=== PATIENT | female | born 1940 | race Caucasian/White ===

== ENCOUNTER 2017-03-03 16:20 | Emergency (ER) | payer MEDICARE, BC ==
[~2017-03-03] VITALS: Ht 165.1 cm; Wt 65.9 kg
[~2017-03-03 16:20] MED LIST: ACIDOPHILU4 PO; ACIPHEX20 MG PO; AMLODIPINE5 MG PO; ASPIRIN EC81 MG PO; BACTRIM DS1 TAB PO; BL ADULT ASA81 MG OR; BLACK COHOSH160 MG PO; BLACK COHOSH40 MG PO; BONIVA150 MG PO; CALCIUM MAGNESIUM & PO; CALCIUM/MAG PO; CELEBREX100 MG PO; CELEBREX200 MG OR; CENTRUM PO; CIPROFLOXACN500 MG PO; COD LIVER O1 PO; COD LIVER OIL; FLORASTOR250 M1 PO; FLUOXETINE20 M2 OR; FLUOXETINE20 MG PO; GLUCOSAMINE CHO1 CA3; LEVAQUIN250 MG OR; LEVAQUIN500 MG PO; LORTAB5 PO; LOSARTAN POT100 MG PO; LOSARTAN POTASS50 MG PO; NORCO1 TA1 PO; OXYCODONE HCL5 MG PO; OXYCODONE5 M1 PO; OXYCONTIN10 MG PO; PEPCID20 MG PO; PEPCID40 MG PO; PHENERGAN25 MG/TAB PO; PHILLIPS COLON HEALT PO; PLAVIX75 MG PO; PROMETHAZINE HC25 MG RE; PYRIDIUM200 MG OR; RESTORIL15 MG PO; SIMVASTATIN80 MG PO; VITAMIN B 12100 MCG PO; VOLTAREN 1% TOP; XALATAN 0.005%2.5 ML OU; [UNRECOGNIZED DRUG - OTHER] DT; [UNRECOGNIZED DRUG - OTHER] OP; [UNRECOGNIZED DRUG - OTHER] OU; [UNRECOGNIZED DRUG - OTHER] PO
[2017-03-03] MEDS ORDERED: CIPROFLOXACN500 MG PO ×2 (17:23→17:34)
[2017-03-03 17:34] VITALS: BP 149/84
== END 2017-03-03 17:34 | disposition home or self-care (01) ==
LOC: ED 16:20
DX: S40.811A Abrasion of right upper arm, initial encounter (principal); S80.212A Abrasion, left knee, initial encounter; S80.211A Abrasion, right knee, initial encounter; S41.111A Laceration without foreign body of right upper arm, initial encounter; W01.0XXA Fall on same level from slipping, tripping and stumbling without subsequent striking against object, initial encounter; Y93.01 Activity, walking, marching and hiking; Y92.007 Garden or yard of unspecified non-institutional (private) residence as the place of occurrence of the external cause

== ENCOUNTER 2017-03-05 19:11 | Emergency (ER) | payer MEDICARE, BC ==
[~2017-03-05] VITALS: Ht 165.1 cm; Wt 63.4 kg
[2017-03-05] MEDS ORDERED: BACTRIM DS1 TAB PO (19:52)
[2017-03-05 20:08] VITALS: BP 127/72
== END 2017-03-05 20:10 | disposition home or self-care (01) ==
LOC: ED 19:11
DX: S41.111D Laceration without foreign body of right upper arm, subsequent encounter (principal)

== ENCOUNTER 2017-03-07 12:19 | Emergency (ER) | payer MEDICARE, BC ==
[~2017-03-07] VITALS: Ht 165.1 cm; Wt 66.0 kg
[2017-03-07 13:43] VITALS: BP 110/71
== END 2017-03-07 13:43 | disposition home or self-care (01) ==
LOC: ED 12:19
PROC: 0H9EXZZ Drainage of Left Lower Arm Skin, External Approach (ICD-10-PCS; principal; 2017-03-07)
DX: S41.111D Laceration without foreign body of right upper arm, subsequent encounter (principal)

== ENCOUNTER 2018-09-16 09:19 | Inpatient (IN) | payer MEDICARE ==
[~2018-09-16] VITALS: Ht 165.1 cm; Wt 62.0 kg
[~2018-09-16 09:19] MED LIST changes: +FAMOTIDINE20 M1 PO; +PERCOCET 10/31 COMBO PO
[2018-09-16 09:48] LABS: IMMATURE GRANULOCYTES 0.6 % (0.0-5.0); MEAN CELL VOLUME 85.3 fL CALC (80.0-100.0); MEAN CORPUSCULAR HGB 29.4 pG CALC (26.0-32.0); MEAN CORPUSCULAR HGB CONC 34.5 g/L CALC (32.0-36.0); NEUT# 18.39 thou/uL (2.00-7.15); RED BLOOD COUNT 6.53 mill/uL (4.20-5.60); RED CELL DISTRI WIDTH 13.8 % (11.5-15.5)
[2018-09-16 09:52] LABS: HEMATOCRIT 55.7 % (37.0-47.0); HEMOGLOBIN 19.2 g/dl (12.0-16.0)
[2018-09-16 09:59] LABS: ALKALINE PHOSPHATASE 121 u/l (38-126); ANION GAP 21 (6-22 (CALC)); BILIRUBIN, TOTAL 1.5 mg/dL (0.0-1.4); BUN 19 mg/dL (8-23); BUN/CREATININE RATIO 35 (12-20 (CALC)); CARBON DIOXIDE 25 mmol/l (22-30); CHLORIDE 94 mmol/l (95-108); CREATININE 0.5 mg/dL (0.5-1.0); GFR > 60 ML/MIN (>=60 (CALC)); GFR FOR AFR.AMER. > 60 ML/MIN (>=60 (CALC)); LIPASE 99 u/l (23-300); POTASSIUM 3.8 mmol/l (3.5-5.1); SGOT/AST 42 u/l (9-36); SODIUM 136 mmol/l (137-146)
[2018-09-16 10:00] LABS: TOTAL PROTEIN 8.7 g/dL (6.3-8.2)
[2018-09-16 12:01] LABS: URINE BILIRUBIN - DIPSTICK NEGATIVE (NEGATIVE); URINE BLOOD DIPSTICK TRACE-INTACT (NEGATIVE); URINE COLOR YELLOW; URINE GLUCOSE - DIPSTICK NEGATIVE (NEGATIVE); URINE KETONE 15 mg/dL (NEGATIVE); URINE LEUK ESTERASE NEGATIVE (NEGATIVE); URINE NITRITE - DIPSTICK NEGATIVE (Negative); URINE PROTEIN - DIPSTICK 30 mg/dL (NEG-TRACE); URINE UROBILINOGEN - DIPSTICK 0.2 E.U./dL (0.2)
[2018-09-16 12:10] LABS: URINE RBC 0-2 RBC/hpf (0-5); URINE WBC 0-2 WBC/hpf (0-5)
[2018-09-16 12:11] LABS: URINE SQUAMOUS EPITHELIAL CELL FEW EPI/hpf (0-FEW)
[2018-09-16 13:41] LABS: MAGNESIUM 2.1 mg/dL (1.6-2.3)
[2018-09-16 15:20] VITALS: BP 170/83
[2018-09-16 15:54] LABS: HEMATOCRIT 51.4 % (37.0-47.0); HEMOGLOBIN 17.6 g/dl (12.0-16.0); IMMATURE GRANULOCYTES 0.6 % (0.0-5.0); MEAN CELL VOLUME 86.5 fL CALC (80.0-100.0); MEAN CORPUSCULAR HGB 29.6 pG CALC (26.0-32.0); MEAN CORPUSCULAR HGB CONC 34.2 g/L CALC (32.0-36.0); NEUT# 17.82 thou/uL (2.00-7.15); RED BLOOD COUNT 5.94 mill/uL (4.20-5.60); RED CELL DISTRI WIDTH 13.8 % (11.5-15.5)
[2018-09-16 16:56] LABS: ANION GAP 17 (6-22 (CALC)); BUN 16 mg/dL (8-23); BUN/CREATININE RATIO 33 (12-20 (CALC)); CARBON DIOXIDE 24 mmol/l (22-30); CHLORIDE 101 mmol/l (95-108); CREATININE 0.5 mg/dL (0.5-1.0); GFR > 60 ML/MIN (>=60 (CALC)); GFR FOR AFR.AMER. > 60 ML/MIN (>=60 (CALC)); POTASSIUM 3.9 mmol/l (3.5-5.1); SODIUM 137 mmol/l (137-146)
[2018-09-16 19:20] VITALS: BP 179/90
[2018-09-16 22:00] VITALS: BP 100/64
[2018-09-16 22:05] VITALS: BP 118/66
[2018-09-16 22:10] VITALS: BP 122/64
[2018-09-17] VITALS (8 sets, daily range): BP systolic 98–159; BP diastolic 45–99
[2018-09-17 05:35] LABS: ANION GAP 14 (6-22 (CALC)); BUN 15 mg/dL (8-23); BUN/CREATININE RATIO 27 (12-20 (CALC)); CARBON DIOXIDE 24 mmol/l (22-30); CHLORIDE 105 mmol/l (95-108); CREATININE 0.6 mg/dL (0.5-1.0); GFR > 60 ML/MIN (>=60 (CALC)); GFR FOR AFR.AMER. > 60 ML/MIN (>=60 (CALC)); POTASSIUM 3.7 mmol/l (3.5-5.1); SODIUM 139 mmol/l (137-146)
[2018-09-17 05:51] LABS: HEMOGLOBIN 17.1 g/dl (12.0-16.0); IMMATURE GRANULOCYTES 1.1 % (0.0-5.0); MEAN CELL VOLUME 87.4 fL CALC (80.0-100.0); MEAN CORPUSCULAR HGB 29.9 pG CALC (26.0-32.0); MEAN CORPUSCULAR HGB CONC 34.2 g/L CALC (32.0-36.0); NEUT# 15.47 thou/uL (2.00-7.15); RED BLOOD COUNT 5.72 mill/uL (4.20-5.60); RED CELL DISTRI WIDTH 14.2 % (11.5-15.5)
[2018-09-18] VITALS (8 sets, daily range): BP systolic 103–146; BP diastolic 60–81
[2018-09-18 05:35] LABS: HEMATOCRIT 46.5 % (37.0-47.0); HEMOGLOBIN 15.7 g/dl (12.0-16.0); IMMATURE GRANULOCYTES 0.7 % (0.0-5.0); MEAN CELL VOLUME 88.7 fL CALC (80.0-100.0); MEAN CORPUSCULAR HGB CONC 33.8 g/L CALC (32.0-36.0); NEUT# 11.99 thou/uL (2.00-7.15); RED BLOOD COUNT 5.24 mill/uL (4.20-5.60); RED CELL DISTRI WIDTH 14.5 % (11.5-15.5)
[2018-09-18 05:56] LABS: ALKALINE PHOSPHATASE 73 u/l (38-126); AMYLASE 85 u/l (30-110); ANION GAP 13 (6-22 (CALC)); BUN 17 mg/dL (8-23); BUN/CREATININE RATIO 26 (12-20 (CALC)); CARBON DIOXIDE 25 mmol/l (22-30); CHLORIDE 103 mmol/l (95-108); CREATININE 0.7 mg/dL (0.5-1.0); GFR > 60 ML/MIN (>=60 (CALC)); GFR FOR AFR.AMER. > 60 ML/MIN (>=60 (CALC)); LIPASE 476 u/l (23-300); POTASSIUM 3.3 mmol/l (3.5-5.1); SGOT/AST 26 u/l (9-36); SODIUM 139 mmol/l (137-146)
[2018-09-18 05:57] LABS: ALBUMIN 3.3 g/dL (3.2-5.0); TOTAL PROTEIN 5.7 g/dL (6.3-8.2)
[2018-09-19] VITALS (8 sets, daily range): BP systolic 102–152; BP diastolic 67–89
[2018-09-19 05:45] LABS: HEMATOCRIT 43.5 % (37.0-47.0); HEMOGLOBIN 14.7 g/dl (12.0-16.0); IMMATURE GRANULOCYTES 0.6 % (0.0-5.0); MEAN CELL VOLUME 87.9 fL CALC (80.0-100.0); MEAN CORPUSCULAR HGB 29.7 pG CALC (26.0-32.0); MEAN CORPUSCULAR HGB CONC 33.8 g/L CALC (32.0-36.0); NEUT# 9.74 thou/uL (2.00-7.15); RED BLOOD COUNT 4.95 mill/uL (4.20-5.60); RED CELL DISTRI WIDTH 14.2 % (11.5-15.5)
[2018-09-19 05:47] LABS: ALBUMIN 3.1 g/dL (3.2-5.0); ALKALINE PHOSPHATASE 64 u/l (38-126); AMYLASE 105 u/l (30-110); ANION GAP 13 (6-22 (CALC)); BILIRUBIN, TOTAL 0.9 mg/dL (0.0-1.4); BUN 13 mg/dL (8-23); BUN/CREATININE RATIO 22 (12-20 (CALC)); CARBON DIOXIDE 27 mmol/l (22-30); CHLORIDE 103 mmol/l (95-108); CREATININE 0.6 mg/dL (0.5-1.0); GFR > 60 ML/MIN (>=60 (CALC)); GFR FOR AFR.AMER. > 60 ML/MIN (>=60 (CALC)); LIPASE 607 u/l (23-300); POTASSIUM 3.1 mmol/l (3.5-5.1); SGOT/AST 23 u/l (9-36); SODIUM 140 mmol/l (137-146); TOTAL PROTEIN 5.5 g/dL (6.3-8.2)
[2018-09-19 17:56] LABS: C. DIFFICILE TOXIN A&B NEGATIVE (NEGATIVE)
[2018-09-20] VITALS (10 sets, daily range): BP systolic 112–156; BP diastolic 65–94
[2018-09-20 10:45] LABS: HEMATOCRIT 42.6 % (37.0-47.0); HEMOGLOBIN 14.6 g/dl (12.0-16.0); IMMATURE GRANULOCYTES 0.3 % (0.0-5.0); MEAN CELL VOLUME 88.2 fL CALC (80.0-100.0); MEAN CORPUSCULAR HGB 30.2 pG CALC (26.0-32.0); MEAN CORPUSCULAR HGB CONC 34.3 g/L CALC (32.0-36.0); NEUT# 6.94 thou/uL (2.00-7.15); RED BLOOD COUNT 4.83 mill/uL (4.20-5.60); RED CELL DISTRI WIDTH 14.1 % (11.5-15.5)
[2018-09-20 11:08] LABS: ALBUMIN 3.3 g/dL (3.2-5.0); ALKALINE PHOSPHATASE 54 u/l (38-126); ANION GAP 14 (6-22 (CALC)); BILIRUBIN, TOTAL 0.9 mg/dL (0.0-1.4); BUN 10 mg/dL (8-23); BUN/CREATININE RATIO 19 (12-20 (CALC)); CARBON DIOXIDE 24 mmol/l (22-30); CHLORIDE 105 mmol/l (95-108); CREATININE 0.5 mg/dL (0.5-1.0); GFR > 60 ML/MIN (>=60 (CALC)); GFR FOR AFR.AMER. > 60 ML/MIN (>=60 (CALC)); LIPASE 594 u/l (23-300); POTASSIUM 3.3 mmol/l (3.5-5.1); SGOT/AST 23 u/l (9-36); SODIUM 140 mmol/l (137-146); TOTAL PROTEIN 5.7 g/dL (6.3-8.2)
[2018-09-21] VITALS (10 sets, daily range): BP systolic 94–140; BP diastolic 43–84
[2018-09-21 05:10] LABS: HEMATOCRIT 41.7 % (37.0-47.0); HEMOGLOBIN 14.1 g/dl (12.0-16.0); IMMATURE GRANULOCYTES 0.6 % (0.0-5.0); MEAN CELL VOLUME 88.2 fL CALC (80.0-100.0); MEAN CORPUSCULAR HGB 29.8 pG CALC (26.0-32.0); MEAN CORPUSCULAR HGB CONC 33.8 g/L CALC (32.0-36.0); NEUT# 6.41 thou/uL (2.00-7.15); RED BLOOD COUNT 4.73 mill/uL (4.20-5.60); RED CELL DISTRI WIDTH 13.9 % (11.5-15.5)
[2018-09-21 08:21] LABS: ALBUMIN 3.1 g/dL (3.2-5.0); ALKALINE PHOSPHATASE 56 u/l (38-126); AMYLASE 100 u/l (30-110); ANION GAP 18 (6-22 (CALC)); BILIRUBIN, TOTAL 0.8 mg/dL (0.0-1.4); BUN 12 mg/dL (8-23); BUN/CREATININE RATIO 24 (12-20 (CALC)); CARBON DIOXIDE 22 mmol/l (22-30); CHLORIDE 105 mmol/l (95-108); CREATININE 0.5 mg/dL (0.5-1.0); GFR > 60 ML/MIN (>=60 (CALC)); GFR FOR AFR.AMER. > 60 ML/MIN (>=60 (CALC)); LIPASE 509 u/l (23-300); MAGNESIUM 1.9 mg/dL (1.6-2.3); POTASSIUM 3.3 mmol/l (3.5-5.1); SGOT/AST 26 u/l (9-36); SODIUM 142 mmol/l (137-146); TOTAL PROTEIN 5.5 g/dL (6.3-8.2)
[2018-09-22] VITALS (7 sets, daily range): BP systolic 122–158; BP diastolic 71–79
[2018-09-22 02:36] LABS: C. DIFFICILE TOXIN A&B NEGATIVE (NEGATIVE)
[2018-09-22 05:31] LABS: HEMATOCRIT 40.9 % (37.0-47.0); HEMOGLOBIN 14.1 g/dl (12.0-16.0); IMMATURE GRANULOCYTES 0.7 % (0.0-5.0); MEAN CORPUSCULAR HGB CONC 34.5 g/L CALC (32.0-36.0); NEUT# 6.15 thou/uL (2.00-7.15); RED BLOOD COUNT 4.7 mill/uL (4.20-5.60)
[2018-09-22 05:54] LABS: ALBUMIN 3.1 g/dL (3.2-5.0); ALKALINE PHOSPHATASE 52 u/l (38-126); AMYLASE 91 u/l (30-110); BILIRUBIN, TOTAL 0.6 mg/dL (0.0-1.4); BUN 9 mg/dL (8-23); BUN/CREATININE RATIO 20 (12-20 (CALC)); CARBON DIOXIDE 25 mmol/l (22-30); CHLORIDE 106 mmol/l (95-108); CREATININE 0.5 mg/dL (0.5-1.0); GFR > 60 ML/MIN (>=60 (CALC)); GFR FOR AFR.AMER. > 60 ML/MIN (>=60 (CALC)); SGOT/AST 23 u/l (9-36); TOTAL PROTEIN 5.5 g/dL (6.3-8.2)
[2018-09-22 05:57] LABS: ANION GAP 4 (6-22 (CALC)); SODIUM 131 mmol/l (137-146)
[2018-09-22 06:23] LABS: MAGNESIUM 1.8 mg/dL (1.6-2.3)
[2018-09-23] VITALS (8 sets, daily range): BP systolic 110–156; BP diastolic 66–93
[2018-09-23 09:44] LABS: IMMATURE GRANULOCYTES 0.6 % (0.0-5.0); MEAN CELL VOLUME 86.4 fL CALC (80.0-100.0); MEAN CORPUSCULAR HGB 29.7 pG CALC (26.0-32.0); MEAN CORPUSCULAR HGB CONC 34.3 g/L CALC (32.0-36.0); NEUT# 6.54 thou/uL (2.00-7.15); RED BLOOD COUNT 5.53 mill/uL (4.20-5.60); RED CELL DISTRI WIDTH 14.4 % (11.5-15.5)
[2018-09-23 09:48] LABS: ANION GAP 15 (6-22 (CALC)); BUN 4 mg/dL (8-23); BUN/CREATININE RATIO 8 (12-20 (CALC)); CARBON DIOXIDE 23 mmol/l (22-30); CHLORIDE 107 mmol/l (95-108); CREATININE 0.5 mg/dL (0.5-1.0); GFR > 60 ML/MIN (>=60 (CALC)); GFR FOR AFR.AMER. > 60 ML/MIN (>=60 (CALC)); MAGNESIUM 1.8 mg/dL (1.6-2.3); POTASSIUM 4.2 mmol/l (3.5-5.1)
[2018-09-23 10:05] LABS: SODIUM 141 mmol/l (137-146)
[2018-09-23 10:06] LABS: HEMATOCRIT 47.8 % (37.0-47.0); HEMOGLOBIN 16.4 g/dl (12.0-16.0)
[2018-09-23 11:44] LABS: C. DIFFICILE TOXIN A&B NEGATIVE (NEGATIVE)
[2018-09-24 04:15] VITALS: BP 124/86
[2018-09-24 04:56] LABS: HEMATOCRIT 46.8 % (37.0-47.0); HEMOGLOBIN 15.9 g/dl (12.0-16.0); IMMATURE GRANULOCYTES 0.7 % (0.0-5.0); MEAN CELL VOLUME 86.8 fL CALC (80.0-100.0); MEAN CORPUSCULAR HGB 29.5 pG CALC (26.0-32.0); NEUT# 6.77 thou/uL (2.00-7.15); RED BLOOD COUNT 5.39 mill/uL (4.20-5.60); RED CELL DISTRI WIDTH 14.5 % (11.5-15.5)
[2018-09-24 05:17] LABS: ANION GAP 15 (6-22 (CALC)); BUN 8 mg/dL (8-23); BUN/CREATININE RATIO 15 (12-20 (CALC)); CARBON DIOXIDE 23 mmol/l (22-30); CHLORIDE 107 mmol/l (95-108); CREATININE 0.5 mg/dL (0.5-1.0); GFR > 60 ML/MIN (>=60 (CALC)); GFR FOR AFR.AMER. > 60 ML/MIN (>=60 (CALC)); MAGNESIUM 1.8 mg/dL (1.6-2.3); POTASSIUM 4.1 mmol/l (3.5-5.1); SODIUM 140 mmol/l (137-146)
[2018-09-24 08:08] VITALS: BP 131/66
[2018-09-24 11:41] VITALS: BP 140/86
[2018-09-24 15:05] VITALS: BP 103/73
[2018-09-24 19:22] VITALS: BP 124/78
[2018-09-25 00:15] VITALS: BP 109/72
== END 2018-09-25 01:05 | DRG 392 ==
LOC: ED 09:19 → ED-I 12:05 → ED 12:16 → MS2 12:17
PROVIDERS: Family Medicine; Internal Medicine Nephrology; Nurse Practitioner Family; ADMIT Internal Medicine; ATTEND Internal Medicine
DX: R11.2 Nausea with vomiting, unspecified (principal); N39.0 Urinary tract infection, site not specified; K57.32 Diverticulitis of large intestine without perforation or abscess without bleeding; R19.7 Diarrhea, unspecified; I10 Essential (primary) hypertension; E78.5 Hyperlipidemia, unspecified; G89.4 Chronic pain syndrome; I25.10 Atherosclerotic heart disease of native coronary artery without angina pectoris; K44.9 Diaphragmatic hernia without obstruction or gangrene; N28.1 Cyst of kidney, acquired; K21.9 Gastro-esophageal reflux disease without esophagitis; H40.9 Unspecified glaucoma; M81.0 Age-related osteoporosis without current pathological fracture; F32.9 Major depressive disorder, single episode, unspecified; K86.89 Other specified diseases of pancreas; B96.20 Unspecified Escherichia coli [E. coli] as the cause of diseases classified elsewhere; Z87.891 Personal history of nicotine dependence; Z87.440 Personal history of urinary (tract) infections; Z86.19 Personal history of other infectious and parasitic diseases; Z79.891 Long term (current) use of opiate analgesic
CPT/HCPCS: J1650; Q9967; S0164

== ENCOUNTER 2019-01-20 15:54 | Observation (INO) | payer MEDICARE ==
[~2019-01-20] VITALS: Ht 165.1 cm; Wt 55.4 kg
--- NOTE | 2019-01-20 16:07 | NUR ---
PATIENT TO ROOM VIA WHEELCHAIR AND PHYSICIAN AT BEDSIDE FOR EVAL
[2019-01-20 16:22] LABS: HEMATOCRIT 46.8 % (37.0-47.0); HEMOGLOBIN 15.7 g/dl (12.0-16.0); IMMATURE GRANULOCYTES 0.7 % (0.0-5.0); MEAN CELL VOLUME 88.1 fL CALC (80.0-100.0); MEAN CORPUSCULAR HGB 29.6 pG CALC (26.0-32.0); MEAN CORPUSCULAR HGB CONC 33.5 g/L CALC (32.0-36.0); NEUT# 8.26 thou/uL (2.00-7.15); RED BLOOD COUNT 5.31 mill/uL (4.20-5.60); RED CELL DISTRI WIDTH 13.6 % (11.5-15.5)
--- NOTE | 2019-01-20 16:32 | NUR ---
PT STATES SHE STARTED ON [place] LAST NIGHT AND WONDERS IF THAT MIGHT BE THE CAUSE OF THE N/V. NOTIFIED.
[2019-01-20 16:36] LABS: ANION GAP 15 (6-22 (CALC)); BUN 15 mg/dL (8-23); BUN/CREATININE RATIO 28 (12-20 (CALC)); CARBON DIOXIDE 27 mmol/l (22-30); CHLORIDE 96 mmol/l (95-108); CREATININE 0.5 mg/dL (0.5-1.0); GFR > 60 ML/MIN (>=60 (CALC)); GFR FOR AFR.AMER. > 60 ML/MIN (>=60 (CALC)); LIPASE 73 u/l (23-300); SGOT/AST 28 u/l (9-36); SODIUM 134 mmol/l (137-146)
[2019-01-20 16:37] LABS: ALBUMIN 4.9 g/dL (3.2-5.0); ALKALINE PHOSPHATASE 119 u/l (38-126); TOTAL PROTEIN 7.9 g/dL (6.3-8.2)
--- NOTE | 2019-01-20 16:39 | NUR ---
NO VOMITING BUT PTS FRIEND CAME OUT AND STATED PT WAS HAVING DRY HEAVES AGAIN.
[2019-01-20] MEDS ORDERED: ONDANSETRON4 MG PO (17:17)
--- NOTE | 2019-01-20 17:47 | NUR ---
2ND BAG OF FLUIDS INFUSING. BLOOD PRESSURE 179/81, NO VOMITING SINCE ARRIVAL
--- NOTE | 2019-01-20 18:20 | NUR ---
PT B SYEDA JULIAN AGAIN, NOTIFIED, NEW ORDER RECEIVED.
--- NOTE | 2019-01-20 18:51 | NUR ---
PT DOWN TO CT SCAN
--- NOTE | 2019-01-20 19:29 | NUR ---
PT HAS APPROX 1500 CC OF LIGHT YELLOW URINE OUTPUT. RESTING QUIELY, NO VOMITING, BUT HAS HAD TWO EPISODES OF DRY HEAVES.
--- NOTE | 2019-01-20 19:52 | NUR ---
FRIEND LEFT PHONE NUMBERS FOR CONTACT IF NEEDED, JUAN J RIOJAS, CELL PHONE [phone] OR HOME PHONE [phone]
--- NOTE | 2019-01-20 20:00 | NUR ---
TRIED TO CALL REPORT BUT NURSE NOT AVAILABLE AT THIS TIME
--- NOTE | 2019-01-20 20:35 | NUR ---
ADVISED OF BLOOD PRESSURE , NO NEW MED ORDERS GIVEN
--- NOTE | 2019-01-20 20:59 | NUR ---
CALLED TO GIVE REPORT, NURSE NOT AVAILABLE AT THIS TIME, WILL RETURN CALL SOON POSSIBLE
[2019-01-20 21:30] VITALS: BP 190/94
--- NOTE | 2019-01-20 21:30 | NUR ---
RECEIVED REPORT FROM ER NURSE KASEY, PATIENT TRANSPORTED VIA BED, SETTLED IN BED, ORIENTED TO ROOM AND CALL LIGHT SYSTEM.
--- NOTE | 2019-01-20 21:33 | NUR ---
PT TAKEN TO FLOOR PER MELINDA, ADVISED NURSE THAT SHE HAD JUST BEEN GIVEN THE .2 MG OF CLONIDINE PO.
[2019-01-20 22:08] LABS: URINE BILIRUBIN - DIPSTICK NEGATIVE (NEGATIVE); URINE BLOOD DIPSTICK NEGATIVE (NEGATIVE); URINE COLOR YELLOW; URINE GLUCOSE - DIPSTICK NEGATIVE (NEGATIVE); URINE KETONE TRACE mg/dL (NEGATIVE); URINE LEUK ESTERASE NEGATIVE (NEGATIVE); URINE NITRITE - DIPSTICK NEGATIVE (Negative); URINE PH 7.5 (4.5-8.0); URINE PROTEIN - DIPSTICK NEGATIVE (NEG-TRACE); URINE UROBILINOGEN - DIPSTICK 0.2 E.U./dL (0.2)
--- NOTE | 2019-01-20 22:27 | NUR ---
SPOKE TO PHARMACIST FROM [facility], OXYCONTIN CANNOT BE CUT. WILL CALL DR. CHEN TO CLARIFY.
--- NOTE | 2019-01-20 22:43 | NUR ---
SPOKE TO DR. CHEN AND ORDERED TO DISCONTINUE OXYCONTIN 15 MG, AND START WITH OXYCONTIN 10 MG BY MOUTH TWO TIMES A DAY.
--- NOTE | 2019-01-20 23:00 | NUR ---
PATIENT ALERT AND ORINTED X 3 ABLE TO MAKE NEEDS KNOWN, WITH ONGOING IV OF NORMAL SALINE G20 ON LAC INFUSING WELL, COMPLAINING OF NAUSEA, PATIENT ON SCHEDULED PAIN MEDICATION FOR CHRONIC BACK PAIN. WILL CONTINUE TO MONITOR
[2019-01-20 23:15] VITALS: BP 103/63
[2019-01-21 04:43] VITALS: BP 96/58
[2019-01-21 04:53] VITALS: BP 100/62
--- NOTE | 2019-01-21 05:19 | NUR ---
PATIENT ALERT AND ORIENTED, DENIES NAUSEA AND PAIN AT THIS TIME, WENT BACK TO SLEEP, WITH EVEN UNLABORED BREATHING, CALL LIGHT AT REACH.
[2019-01-21 07:46] VITALS: BP 104/66
--- NOTE | 2019-01-21 08:54 | NUR ---
REPORT WAS RECEIVED FROM SANDER. ASSESSMENT DONE. MEDICATED PT WITH OXYCONTIN FOR PAIN IN BACK SEE EMAR. PT IS A&O X3. IVF INFUSING WELL. PT DENIES ANY OTHER NEEDS AT THIS TIME. CALL LIGHT IN REACH.
--- NOTE | 2019-01-21 11:50 | NUR ---
PT IS SITTING IN THE SIDE OF THE BED. LUNCH IS SETUP. FRIEND IN ROOM. PT DENIES NEEDS AT THIS TIME. CALL LIGHT IN REACH.
[2019-01-21 16:05] VITALS: BP 114/73
--- NOTE | 2019-01-21 16:06 | NUR ---
PT IS VISITING WITH FRIEND IN ROOM. NO S/S OF DISTRESS NOTED. CALL LIGHT IN REACH.
--- NOTE | 2019-01-21 18:30 | NUR ---
Discharge instructions given. Patient verbalizes understanding of same. Discharged in stable condition via Wheelchair to with HOME staff. All belongings sent with pt.
== END 2019-01-21 18:30 | disposition home or self-care (01) ==
LOC: ED 15:54 → ED-I 19:26 → ED 19:39 → MS2 19:40
PROVIDERS: Family Medicine; ADMIT Internal Medicine; ATTEND Internal Medicine
DX: R11.2 Nausea with vomiting, unspecified (principal); T43.215A Adverse effect of selective serotonin and norepinephrine reuptake inhibitors, initial encounter; E86.0 Dehydration; F41.8 Other specified anxiety disorders; I10 Essential (primary) hypertension; E78.5 Hyperlipidemia, unspecified; G89.4 Chronic pain syndrome; M19.90 Unspecified osteoarthritis, unspecified site; K21.9 Gastro-esophageal reflux disease without esophagitis; I25.10 Atherosclerotic heart disease of native coronary artery without angina pectoris; Z95.5 Presence of coronary angioplasty implant and graft; Z87.891 Personal history of nicotine dependence; Z87.440 Personal history of urinary (tract) infections; R10.84 Generalized abdominal pain
CPT/HCPCS: Q9967

== ENCOUNTER 2019-04-14 10:42 | Emergency (ER) | payer MEDICARE ==
[~2019-04-14] VITALS: Ht 165.1 cm; Wt 70.0 kg
[~2019-04-14 10:42] MED LIST changes: -GLUCOSAMINE CHO1 CA3; +GLUCOSAMINE CHO1 CA3 PO; +ONDANSETRON4 MG PO
[2019-04-14] MEDS ORDERED: NORVASC5 M1 PO (10:52)
[2019-04-14] MEDS ORDERED: POT CHLORIDE10 ME1 PO (10:53)
[2019-04-14] MEDS ORDERED: GLUCOSAMINE500 M1 PO (10:54)
[2019-04-14 11:19] LABS: URINE BILIRUBIN - DIPSTICK NEGATIVE (NEGATIVE); URINE BLOOD DIPSTICK NEGATIVE (NEGATIVE); URINE COLOR YELLOW; URINE GLUCOSE - DIPSTICK NEGATIVE (NEGATIVE); URINE KETONE NEGATIVE (NEGATIVE); URINE NITRITE - DIPSTICK NEGATIVE (Negative); URINE PH 6.5 (4.5-8.0); URINE PROTEIN - DIPSTICK NEGATIVE (NEG-TRACE); URINE SPECIFIC GRAVITY <=1.005; URINE UROBILINOGEN - DIPSTICK 0.2 E.U./dL (0.2)
[2019-04-14 11:21] LABS: URINE LEUK ESTERASE TRACE (NEGATIVE)
[2019-04-14] MEDS ORDERED: CIPROFLOXACN500 MG PO (11:40)
[2019-04-14 12:02] VITALS: BP 155/80
[2019-04-14] MEDS ORDERED: B-121000 MC5 PO (12:07)
[2019-04-14] MEDS ORDERED: OMEGA-3 FISH1000 MG PO (12:07)
[2019-04-14] MEDS ORDERED: MICRO-K8 MEQ PO (12:08)
[2019-04-14] MEDS ORDERED: L-TRYPTOPHAN500 MG PO (12:09)
[2019-04-14] MEDS ORDERED: ACIDOPHILU4 PO (12:09)
== END 2019-04-14 12:06 | disposition home or self-care (01) ==
LOC: ED 10:42
DX: N39.0 Urinary tract infection, site not specified (principal); I10 Essential (primary) hypertension; Z87.440 Personal history of urinary (tract) infections